=== PATIENT | female | born 2000 | race Caucasian/White ===

== ENCOUNTER 2021-10-09 18:01 | Emergency (ER) | payer OTHER ==
[2021-10-09] MEDS ORDERED: Acetaminophen 500 MG TAB ONE (20:37)
[2021-10-09] MEDS ORDERED: Ondansetron ODT 4 MG TAB ONE (20:37)
[2021-10-10 16:41] LABS: SARS-CoV-2 PCR by NAA Not Detected (NotDetected)
== END 2021-10-09 22:06 | disposition home or self-care (01) ==
LOC: CSHERS 18:01
DX: B34.9 Viral infection, unspecified (principal); Z20.822 Contact with and (suspected) exposure to COVID-19
CPT/HCPCS: 87804; 99284; Q0162; U0003; U0005

== ENCOUNTER 2022-02-26 10:04 | Emergency (ER) | payer OTHER | END 2022-02-26 10:55 | disposition home or self-care (01) | LOC: CSHERS 10:04 | DX: O99.612 Diseases of the digestive system complicating pregnancy, second trimester (principal); K21.00 Gastro-esophageal reflux disease with esophagitis, without bleeding; Z3A.23 23 weeks gestation of pregnancy | CPT/HCPCS: 93005; 93010 ==

== ENCOUNTER 2022-04-29 17:23 | Emergency (ER) | payer OTHER ==
[2022-04-29 18:08] LABS: #Eosinphils 0.1 10x3/uL (0.0-0.5); #Monocytes 0.8 10x3/uL (0.0-1.1); %Basophils 0.2 % (0.0-2.0); %Eosinophils 1.2 % (0.0-6.0); %Monocytes 8.2 % (0.0-10.0); %Neutrophils 75.5 % (40.0-75.0); Hemoglobin 10.9 g/dL (12.0-15.5); Mean Corpuscular HGB CONC 32.2 g/dL (32.0-36.0); Mean Corpuscular Hemoglobin 27.7 pg (27.0-33.0); Mean Platelet Volume 9.9 fl (7.4-10.4); Platelet Count 181 10x3/uL (150-450); RBC Distribution Width 15.5 % (11.5-14.5); Red Blood Cell (RBC) Count 3.93 10x6/uL (3.90-5.03); White Blood Cell (WBC) Count 9.2 10x3/uL (3.5-10.5)
[2022-04-29 18:22] LABS: ALT (SGPT) 9 U/L (8-55); AST (SGOT) 12 U/L (5-34); Albumin 3.6 g/dL (3.5-5.0); Alkaline Phosphatase 104 U/L (40-100); Anion Gap 13 mmol/L (10-20); BUN (Urea Nitrogen) 6 mg/dL (7.0-18.7); Bilirubin, Total 0.3 mg/dL (0.2-1.2); Calc. Creatinine Clearance 0 mL/min (70-130); Carbon Dioxide 19 mmol/L (22-29); Chloride 110 mmol/L (98-107); Estimated GFR 129; Globulin 3.5 g/dL (2.4-3.5); Glucose 102 mg/dL (70-105); Potassium 3.9 mmol/L (3.5-5.1); Protein, Total 7.1 g/dL (6.0-8.3); Sodium 138 mmol/L (136-145)
[2022-04-29] MEDS ORDERED: Ondansetron ODT 4 MG TAB ONE (19:44)
[2022-04-29 20:27] LABS: Bilirubin Neg (Negative); Blood, Urine Negative (Negative); Clarity Clear (Clear); Glucose, Urine (Dipstick) Normal (Negative); Ketone, Urine Negative (Negative); Leukocyte 25 (Negative); Nitrite Negative (Negative); Protein, Urine (Dipstick) Negative (Neg-Trace)
[2022-04-29 20:41] LABS: Bacteria/HPF 4+ HPF (None Seen); Mucous/LPF 4+ LPF (<2+); RBC/HPF 0-3 HPF (0-3); Squamous Epithelial 0-3 HPF (0-3); WBC/HPF 0-3 HPF (0-3)
[2022-04-29 20:42] LABS: Calcium Oxalate Crystals Rare HPF (None Seen)
== END 2022-04-29 21:31 | disposition home or self-care (01) ==
LOC: CSHERS 17:23
DX: O99.513 Diseases of the respiratory system complicating pregnancy, third trimester (principal); J06.9 Acute upper respiratory infection, unspecified; O21.9 Vomiting of pregnancy, unspecified; O99.891 Other specified diseases and conditions complicating pregnancy; R82.71 Bacteriuria; Z20.822 Contact with and (suspected) exposure to COVID-19; Z3A.32 32 weeks gestation of pregnancy
CPT/HCPCS: 36415; 80053; 81003; 81015; 85025; 87804; Q0162; U0003; U0005

== ENCOUNTER 2022-06-16 23:29 | Inpatient (IN) | payer OTHER ==
[2022-06-16 23:53] VITALS: BMI 33.4
[2022-06-17] MEDS ORDERED: Docusate 100 MG CAP PO PRN (00:11)
[2022-06-17] MEDS ORDERED: Carboprost 250 MCG/ML AMP IM PRN (00:11)
[2022-06-17] MEDS ORDERED: Misoprostol 200 MCG TAB PR PRN (00:11)
[2022-06-17] MEDS ORDERED: Acetaminophen 500 MG TAB PO PRN (00:11)
[2022-06-17] MEDS ORDERED: Methylergonovine 0.2 MG/ML VIAL IM PRN (00:11)
[2022-06-17] MEDS ORDERED: Ibuprofen 800 MG TAB PO PRN (00:11)
[2022-06-17] MEDS ORDERED: Promethazine HCl 25 MG/ML VIAL IM PRN ×2 (00:11→01:40)
[2022-06-17] MEDS ORDERED: Lidocaine 1% (PF) 30 ML VIAL SC PRN (00:11)
[2022-06-17] MEDS ORDERED: hydrALAZINE 20 MG/ML VIAL SLOW IVP PRN ×2 (00:11→07:03)
[2022-06-17] MEDS ORDERED: Ondansetron PF 4 MG/2 ML Vial IVP PRN ×2 (00:11→01:40)
[2022-06-17] MEDS ORDERED: Fentanyl 100 MCG/2 ML VIAL SLOW IVP PRN (00:11)
[2022-06-17] MEDS ORDERED: NS w/ Oxytocin 30 units 500 ML IV SCH ×2 (00:15)
[2022-06-17] MEDS ORDERED: Lactated Ringer's 1,000 ML IV SCH (00:15)
[2022-06-17] MEDS ORDERED: Misoprostol 100 MCG TAB VAG SCH ×2 (00:30→03:00)
[2022-06-17] MEDS ORDERED: Fentanyl 2 mcg/Bup 0.1% Cadd 100 ML ONE (00:47)
[2022-06-17 00:54] LABS: Hemoglobin 10.7 g/dL (12.0-15.5); Mean Corpuscular HGB CONC 32.2 g/dL (32.0-36.0); Mean Corpuscular Hemoglobin 26.2 pg (27.0-33.0); Mean Corpuscular Volume 81.2 fl (81.6-98.3); Mean Platelet Volume 10.2 fl (7.4-10.4); Platelet Count 213 10x3/uL (150-450); RBC Distribution Width 15.2 % (11.5-14.5); Red Blood Cell (RBC) Count 4.09 10x6/uL (3.90-5.03); White Blood Cell (WBC) Count 11.2 10x3/uL (3.5-10.5)
[2022-06-17 01:37] LABS: Syphilis Antibody Nonreactive (Nonreactive); Syphilis Antibody Index 0.04 S/CO (<1.00 Non-Reactive)
[2022-06-17] MEDS ORDERED: diphenhydrAMINE 50 MG/ML VIAL IVP PRN (01:40)
[2022-06-17] MEDS ORDERED: Moisturizing Cream (Eucerin) 113 GM JAR TOP PRN (01:40)
[2022-06-17] MEDS ORDERED: Lactated Ringer's 500 ML IV PRN (01:40)
[2022-06-17] MEDS ORDERED: ePHEDrine Sulfate 50 MG/10 ML VIAL SLOW IVP PRN (01:40)
[2022-06-17] MEDS ORDERED: Acetaminophen 325 MG TAB PO PRN (01:40)
[2022-06-17] MEDS ORDERED: Naloxone HCl 0.4 mg/ml Vial IVP PRN ×2 (01:40)
[2022-06-17] MEDS ORDERED: Fentanyl 2 mcg/Bupivacaine 0.1% Cassette 100 ML EPIDURAL SCH (01:45)
[2022-06-17] MEDS ORDERED: Communication Order-Pharmacy FS SCH (01:45)
[2022-06-17 01:50] LABS: HBSAg Index 0.21 S/CO (0-0.99); Hep B Surf Ag Non-Reactive S/CO (NonReactive)
[2022-06-17 03:35] LABS: SARS-CoV-2 NAA Rapid Test Not Detected (NotDetected)
[2022-06-17] MEDS ORDERED: Bisacodyl 10 MG SUPP PR PRN (07:03)
[2022-06-17] MEDS ORDERED: diphenhydrAMINE 25 MG CAP PO PRN (07:03)
[2022-06-17] MEDS ORDERED: Lanolin Ointment 7 GM TUBE TOP PRN (07:03)
[2022-06-17] MEDS ORDERED: Preparation H Ointment 28 GM TUBE PR PRN (07:03)
[2022-06-17] MEDS ORDERED: Boostrix 0.5 ML (Tdap) VIAL (>/=7 yrs of age) IM ONE (07:03)
[2022-06-17] MEDS ORDERED: Benzocaine-Menthol 82.5 ML CAN TOP PRN (07:03)
[2022-06-17] MEDS ORDERED: Milk Of Magnesia 30 ML UDCUP PO PRN (07:03)
[2022-06-17] MEDS ORDERED: Ibuprofen 800 MG TAB PO SCH (07:15)
[2022-06-17] MEDS: Prenatal Vitamin 1 TAB PO SCH (08:15)
[2022-06-17] MEDS: Docusate 100 MG CAP PO SCH ×2 (08:15→21:08)
[2022-06-17] MEDS: Ferrous Sulfate 325 MG TAB PO SCH ×2 (08:15→18:58)
[2022-06-17] MEDS: Ibuprofen 800 MG TAB PO SCH ×2 (13:18→21:08)
[2022-06-18] MEDS: Ibuprofen 800 MG TAB PO SCH ×2 (05:53→14:41)
[2022-06-18] MEDS ORDERED: Bupivacaine/Epinephrine 0.25% 30 ML VIAL ONE (07:00)
[2022-06-18] MEDS: Ferrous Sulfate 325 MG TAB PO SCH (07:21)
[2022-06-18 08:18] VITALS: BP 124/68; TEMP 98.2
[2022-06-18] MEDS: Prenatal Vitamin 1 TAB PO SCH (08:45)
[2022-06-18] MEDS: Docusate 100 MG CAP PO SCH (08:46)
== END 2022-06-18 15:40 | disposition home or self-care (01) | DRG 807 ==
LOC: CSHLD/OP 23:29 → CSHLD 06-17 00:30 → CSHPP 06-17 07:00
PROVIDERS: ADMIT Obstetrics & Gynecology; ATTEND Obstetrics & Gynecology
PROC: 10E0XZZ Delivery of Products of Conception, External Approach (ICD-10-PCS; principal; 2022-06-17)
DX: O42.02 Full-term premature rupture of membranes, onset of labor within 24 hours of rupture (principal); Z37.0 Single live birth; Z20.822 Contact with and (suspected) exposure to COVID-19; Z3A.38 38 weeks gestation of pregnancy
CPT/HCPCS: 51702; 85027; 86780; 86850; 86900; 86901; 87340; 99285; U0002

== ENCOUNTER 2022-06-30 13:15 | Emergency (ER) | payer OTHER ==
[2022-06-30] MEDS ORDERED: Lidocaine 1% (PF) 30 ML VIAL ONE (14:10)
[2022-06-30] MEDS ORDERED: Boostrix 0.5 ML (Tdap) VIAL (>/=7 yrs of age) ONE (14:21)
== END 2022-06-30 15:22 | disposition home or self-care (01) ==
LOC: CSHERS 13:15
DX: S61.411A Laceration without foreign body of right hand, initial encounter (principal); Z23 Encounter for immunization; W25.XXXA Contact with sharp glass, initial encounter
CPT/HCPCS: 12002; 90471; 90715; J2001

== ENCOUNTER 2022-11-20 23:38 | Emergency (ER) | payer OTHER ==
[2022-11-21] MEDS ORDERED: Orphenadrine Citrate 60 MG/2 ML VIAL IM SCH (00:30)
== END 2022-11-21 01:20 | disposition home or self-care (01) ==
LOC: CSHERS 23:38
DX: S13.4XXA Sprain of ligaments of cervical spine, initial encounter (principal); S09.90XA Unspecified injury of head, initial encounter; F17.290 Nicotine dependence, other tobacco product, uncomplicated; W19.XXXA Unspecified fall, initial encounter; Y93.89 Activity, other specified
CPT/HCPCS: 70450; 72125; 96372; J2360